=== PATIENT | female | born 1960 | race Caucasian/White ===

== ENCOUNTER 2016-08-19 14:03 | Outpatient (CLI) | payer OTHER ==
--- NOTE | 2016-08-22 15:46 | Mammography Report ---
DIGITAL SCREENING MAMMOGRAM: 08/19/2016 CLINICAL INDICATION: A 55-year-old with history of bilateral implants for screening. COMPARISON: 06/2014, 12/1996 TECHNIQUE: Routine CC and MLO projections were obtained of the breasts as well as bilateral implant displaced views. FINDINGS: The breasts again demonstrate scattered fibroglandular densities bilaterally. Bilateral s ubglandular saline implants are stable. Coarse, typically benign calcifications are present. No vera picious masses, clustered microcalcifications, or regions of architectural distortion are identified. IMPRESSION: BENIGN FINDINGS. RECOMMENDATION: Routine annual screening unless otherwise clinically indicated. BIRADS CATEGORY 2 - BENIGN FINDINGS. STANDARD QUALIFYING STATEMENTS 1. This examination was reviewed with the aid of Computer-Aided Detection (CAD). 2. A negative or benign imaging report should not delay biopsy if clinically suspicious findings are present. Consider surgical consultation if warranted. More than 5% of cancers are not identified by i maging. 3. Dense breasts may obscure an underlying neoplasm. JOB #: [id number] EXT JOB #:[id number]
== END 2016-08-19 14:04 | disposition home or self-care (01) ==
LOC: DI 14:03
PROVIDERS: ATTEND Family Medicine
DX: Z12.31 Encounter for screening mammogram for malignant neoplasm of breast (principal); Z98.82 Breast implant status
CPT/HCPCS: 77067

== ENCOUNTER 2018-05-03 14:36 | Outpatient (CLI) | payer OTHER ==
--- NOTE | 2018-05-04 09:52 | XRAY Report ---
Reason: RIB PAIN, LEFT SIDED Procedure Date: 05/03/2018 Accession Number: [id number] / [id number] Procedure: WCP - Ribs w/PA Chest LT CPT Code: FULL RESULT: EXAM: LEFT RIB RADIOGRAPHY EXAM DATE: 05/03/2018 02:53 PM. CLINICAL HISTORY: Rib pain, left-sided. COMPARISON: None. TECHNIQUE: 1 view of the chest and 2 views of the ribs. FINDINGS: Bones: There are mild cortical irregularities of the left posterolateral 10th through 12th ribs. Lungs: No focal opacities. No pneumothorax. No pleural effusions. Mediastinum: Heart and mediastinal contours are unremarkable. Other: None. IMPRESSION: Mild cortical irregularities of the lower left ribs are suspicious for nondisplaced fractures in the setting of focal bony tenderness. RADIA
== END 2018-05-03 14:37 | disposition home or self-care (01) ==
LOC: DI.WCP 14:36
PROVIDERS: ATTEND Family Medicine
DX: R07.81 Pleurodynia (principal)

== ENCOUNTER 2018-12-12 08:00 | Outpatient (CLI) | payer OTHER ==
--- NOTE | 2018-12-12 08:46 | XRAY Report ---
Reason: COUGH Procedure Date: 12/12/2018 Accession Number: [id number] / [id number] Procedure: WCP - Chest 2 View X-Ray CPT Code: 27907 FULL RESULT: EXAM: CHEST RADIOGRAPHY EXAM DATE: 12/12/2018 08:30 AM. CLINICAL HISTORY: Cough. COMPARISON: RIBS W/PA CHEST LT 05/03/2018 2:36 PM. TECHNIQUE: 2 views. FINDINGS: Lungs/Pleura: No focal opacities evident. No pleural effusion. No pneumothorax. Normal volumes. Mediastinum: Heart and mediastinal contours are unremarkable. Other: None. IMPRESSION: No acute cardiopulmonary normality. RADIA
== END 2018-12-12 23:59 | disposition home or self-care (01) ==
LOC: DI.WCP 08:00 → EDSTATUS 12:36 → DI.WCP 23:59
PROVIDERS: ATTEND Family Medicine
DX: R05 Cough (principal); Z72.0 Tobacco use
CPT/HCPCS: 71046

== ENCOUNTER 2018-12-25 11:03 | Outpatient (CLI) | payer OTHER ==
[2018-12-25] MEDS ORDERED: IOVERSOL 320 100 ML VIAL IVP ONE ×2 (11:20→12:25)
[2018-12-25] MEDS ORDERED: IOVERSOL 320 50 ML VIAL ONE (11:20)
[2018-12-25] MEDS: IOVERSOL 320 100 ML VIAL IVP ONE (15:21)
[2018-12-25] MEDS: IOVERSOL 320 50 ML VIAL PO ONE (15:21)
--- NOTE | 2018-12-25 17:15 | CT Report ---
Reason: MUSCLE MASS Procedure Date: 12/25/2018 Accession Number: [id number] / [id number] Procedure: CT - Abdomen/Pelvis W CPT Code: FULL RESULT: EXAM: CT ABDOMEN AND PELVIS EXAM DATE: 12/25/2018 12:26 PM. CLINICAL HISTORY: MUSCLE MASS. COMPARISONS: ABDOMEN/PELVIS W/O 02/04/2016 12:00 PM. TECHNIQUE: Routine helical CT imaging was performed through the abdomen and pelvis. IV contrast: OPTI 320 100ML. Enteric contrast: No. Reconstructions: Coronal and sagittal. In accordance with CT protocol optimization, one or more of the following dose reduction techniques were utilized for this exam: automated exposure control, adjustment of mA and/or KV based on patient size, or use of iterative reconstructive technique. FINDINGS: Lung Bases: Unremarkable. Liver: Normal. No masses. Gallbladder/Bile Ducts: Unremarkable. Spleen: Normal. Pancreas: Normal. Adrenal Glands: Normal. Kidneys: Normal. No masses or hydronephrosis. Peritoneal Cavity/Bowel: Normal. No free fluid, free air or adenopathy. No masses or acute inflammatory process. The appendix is well visualized and normal. Pelvic Organs: Normal. The bladder and visualized pelvic organs are within normal limits. Vasculature: No aneurysms or other significant abnormality. Bones: No significant abnormality. Other: In the area of clinical concern along the left side of the upper abdomen there is a 9 mm splenule just deep to the lateral muscle wall. IMPRESSION: 1. In the area of clinical concern along the left side of the upper abdomen there is a 9 mm splenule just deep to the lateral muscle wall. This correlates with the level of the BB seen on the stogy roller film. 2. No lymphadenopathy no masses no abdominal wall hernias. RADIA
== END 2018-12-25 11:04 | disposition home or self-care (01) ==
LOC: DI 11:03
PROVIDERS: ATTEND Family Medicine
DX: M62.89 Other specified disorders of muscle (principal)
CPT/HCPCS: 74177; Q9967

== ENCOUNTER 2019-03-29 07:00 | Outpatient (CLI) | payer OTHER ==
[2019-03-29 14:34] LABS: MUDS CUTOFF CONCENTRATIONS CUTOFF CONC BELOW:
[2019-03-29 14:56] LABS: AMPHETAMINE SCREEN,URINE NEGATIVE (NEGATIVE); BENZODIAZEPINES SCREEN, URINE NEGATIVE (NEGATIVE); COCAINE SCREEN URINE NEGATIVE (NEGATIVE); METHADONE SCREEN, URINE NEGATIVE (NEGATIVE); METHAMPHETAMINES SCREEN, URINE NEGATIVE (NEGATIVE); OXYCODONE SCREEN, URINE NEGATIVE (NEGATIVE); PROPOXYPHENE SCREEN, URINE NEGATIVE (NEGATIVE); TRICYCLIC ANTIDEPRESSANT,URINE NEGATIVE (NEGATIVE)
[2019-03-29 14:57] LABS: OPIATE SCREEN, URINE POSITIVE (NEGATIVE)
== END 2019-03-29 23:59 | disposition home or self-care (01) ==
LOC: LAB.R 07:00
PROVIDERS: ATTEND Family Medicine
DX: Z51.81 Encounter for therapeutic drug level monitoring (principal); Z79.891 Long term (current) use of opiate analgesic
CPT/HCPCS: 80306

== ENCOUNTER 2023-08-29 08:00 | Outpatient (CLI) | payer BC | END 2023-08-29 08:01 | disposition home or self-care (01) | LOC: LAB.R 08:00 | PROVIDERS: ATTEND Nurse Practitioner | DX: D48.5 Neoplasm of uncertain behavior of skin (principal) | CPT/HCPCS: 87070; 87205 ==